=== PATIENT | male | born 1960 | race Caucasian/White ===

== ENCOUNTER 2017-06-07 13:16 | Emergency (ER) | payer OTHER, MEDICAID ==
[2017-06-07] MEDS: IBUPROFEN 600 MG TAB PO (15:26)
[2017-06-07] MEDS: traMADol 50 MG TAB PO (15:26)
== END 2017-06-07 18:02 | disposition home or self-care (01) ==
LOC: E/R 13:16
DX: S83.92XA Sprain of unspecified site of left knee, initial encounter (principal); S70.02XA Contusion of left hip, initial encounter; R06.02 Shortness of breath; W18.39XA Other fall on same level, initial encounter; Y92.9 Unspecified place or not applicable
CPT/HCPCS: 71045; 72170; 73562; 73590; 99284-25

== ENCOUNTER 2017-06-09 20:55 | Emergency (ER) | payer OTHER ==
[2017-06-09 21:35] LABS: ADD MAN DIFF? NO
[2017-06-09 21:38] LABS: BASOPHIL # 0.1 10^3/ul (0.0-0.1); BASOPHILS % 1.2 % (0.0-2.0); EOSINOPHILS # 0.3 10^3/ul (0.0-0.5); EOSINOPHILS % 3.7 % (0.0-7.0); HEMATOCRIT 37.5 % (42.0-52.0); HEMOGLOBIN 12.4 g/dl (14.0-18.0); LYMPHOCYTES # 2.1 10^3/ul (0.8-2.9); LYMPHOCYTES % 27.9 % (15.0-51.0); MEAN CORPUSCULAR HEMOGLOBIN 30.2 pg (29.0-33.0); MEAN CORPUSCULAR HGB CONC 33.1 g/dl (32.0-37.0); MEAN CORPUSCULAR VOLUME 91.5 fl (82.0-101.0); MONOCYTE # 0.5 10^3/ul (0.3-0.9); MONOCYTES % 7.4 % (0.0-11.0); NEUTROPHIL # 4.4 10^3/ul (1.6-7.5); NEUTROPHILS % 59.5 % (39.0-77.0); PLATELET COUNT 278 10^3/UL (140-415); RED CELL DISTRIBUTION WIDTH 13.3 % (11.5-14.5)
[2017-06-09 21:38] LABS: WHITE BLOOD COUNT 7.3 10^3/ul (4.8-10.8)
[2017-06-09 21:59] LABS: PROTIME 13.3 Sec (11.9-14.9)
[2017-06-09 22:00] LABS: PARTIAL THROMBOPLASTIN TIME 27.6 Sec (25.0-35.0)
[2017-06-09 22:01] LABS: ALANINE AMINOTRANSFERASE 21 IU/L (13-69); ALBUMIN 4.1 g/dl (3.3-4.9); ALBUMIN/GLOBULIN RATIO 1.28; ALKALINE PHOSPHATASE 73 IU/L (42-121); ANION GAP 14 (8-16); ASPARTATE AMINO TRANSFERASE 21 IU/L (15-46); BILIRUBIN,INDIRECT 0.3 mg/dl (0-1.1); BILIRUBIN,TOTAL 0.3 mg/dl (0.2-1.3); BLOOD UREA NITROGEN 15 mg/dl (7-20); CALCIUM 10.1 mg/dl (8.4-10.2); CARBON DIOXIDE 32 mmol/L (21-31); CHLORIDE 105 mmol/L (97-110); CREATININE 0.69 mg/dl (0.61-1.24); GLUCOSE 96 mg/dl (70-220); POTASSIUM 3.7 mmol/L (3.5-5.1); SODIUM 147 mmol/L (135-144); TOTAL PROTEIN 7.3 g/dl (6.1-8.1)
[2017-06-09 22:09] LABS: ACETAMINOPHEN < 10.0 ug/ml (10.0-30.0); ETHANOL < 10.0 mg/dl; SALICYLATE < 1.0 mg/dl (5.0-30.0)
[2017-06-10] MEDS: traMADol 50 MG TAB PO (07:30)
== END 2017-06-10 09:52 ==
LOC: E/R 20:55
DX: R45.851 Suicidal ideations (principal); R07.9 Chest pain, unspecified
CPT/HCPCS: 80053; 80306; 85025; 85610; 85730; 99285